=== PATIENT | male | born 1965 | race Caucasian/White ===

== ENCOUNTER 2019-06-25 16:12 | Emergency (ER) | payer OTHER, SELFPAY ==
[~2019-06-25] VITALS: Ht 190.5 cm; Wt 82.0 kg
[2019-06-25] MEDS ORDERED: AMLO10TA8 PO (16:41)
[2019-06-25] MEDS ORDERED: METO25TA35 PO (16:41)
--- NOTE | 2019-06-25 16:49 | NUR ---
PT ABLE TO PROVIDE RN WITH A URINE SAMPLE. COLLECTED AND WAITING FOR ORDERS. PERSONAL BELONGINGS COLLECT AND PLACED IN 1 PERSONAL BELONGING BAG. RN GAVE PERSONAL BELONGING BAG TO CHARGE DECK ENGINE OPERATOR RICK TO PUT INTO LOCKER. SI PRECAUTIONS IMPLEMENTED IN ROOM. AWAITING MD TO EVALUATE. SITTER REQUESTED. NO NEEDS AT THIS TIME.
--- NOTE | 2019-06-25 17:08 | NUR ---
PT LYING ON GURNEY WATCHING TV.
--- NOTE | 2019-06-25 17:24 | NUR ---
OKAY BY SOY TO ORDER PT FOOD.
--- NOTE | 2019-06-25 17:37 | NUR ---
THROUGHPUT: TELEPSYCH PAGED.
[2019-06-25 17:41] LABS: AMPHETAMINE SCREEN, URINE Negative (Negative); BARBITURATE SCREEN, URINE Negative (Negative); BENZODIAZEPINE SCREEN, URINE Negative (Negative); CANNABINOID SCREEN, URINE Positive (Negative); COCAINE SCREEN, URINE Negative (Negative); METHADONE SCREEN, URINE Negative (Negative); OPIATE SCREEN, URINE Negative (Negative)
[2019-06-25 17:52] LABS: ALBUMIN 4.4 g/dL (3.4-5.0); ANION GAP 9 mmol/L (5-15); CALCIUM 8.8 mg/dL (8.5-10.1); CHLORIDE 107 mmol/L (98-107); SALICYLATE LEVEL 2.8 mg/dL (2.8-20.0)
[2019-06-25 17:55] LABS: ALANINE AMINOTRANSFERASE 33 U/L (12-78); ALKALINE PHOSPHATASE 60 U/L (45-117); BILIRUBIN,TOTAL 0.6 mg/dL (0.2-1.0); CREATININE 0.76 mg/dL (0.7-1.3); TOTAL PROTEIN 7.7 g/dL (6.4-8.2)
--- NOTE | 2019-06-25 18:01 | NUR ---
DINNER BROUGHT TO PT.
[2019-06-25 18:08] LABS: MEAN CORPUSCULAR HEMOGLOBIN 34.5 pg (27.5-34.5); MEAN CORPUSCULAR HGB CONC 34.8 g/dL (33.2-36.2); MEAN CORPUSCULAR VOLUME 99.2 fL (81-97); PLATELET COUNT 265 x10^3/uL (130-400); RED BLOOD COUNT 4.54 x10^6/uL (4.38-5.82); RED CELL DISTRIBUTION WIDTH 12.6 % (9.4-14.8)
[2019-06-25 18:09] LABS: BASOPHILS # (AUTO) 0.02 x10^3/uL (0-0.1); BASOPHILS % (AUTO) 0 % (0-1); EOSINOPHILS # (AUTO) 0.02 x10^3/uL (0-0.4); EOSINOPHILS % (AUTO) 0 % (1-7); LYMPHOCYTES # (AUTO) 1.04 x10^3/uL (1-3.4); LYMPHOCYTES % (AUTO) 15 % (22-44); MD SCAN; MONOCYTES # (AUTO) 0.41 x10^3/uL (0.2-0.8); MONOCYTES % (AUTO) 6 % (2-9); NEUTROPHILS # (AUTO) 5.67 x10^3/uL (1.8-6.8); NEUTROPHILS % (AUTO) 79 % (42-75)
--- NOTE | 2019-06-25 18:45 | NUR ---
ROUNDS COMPLETED. RESTING SITTER AT THE BEDSIDE.
--- NOTE | 2019-06-25 18:49 | NUR ---
REPORT TO SOC.
--- NOTE | 2019-06-25 18:56 | NUR ---
REPORT TO KIRSTEN RN TO ASSUME PRIMARY CARE OF PT.
--- NOTE | 2019-06-25 19:12 | NUR ---
TELE PSYCH BEING COMPLETED.
--- NOTE | 2019-06-25 20:21 | NUR ---
REPORT TO KIRSTEN RN TO ASSUME PRIMARY CARE OF PT.
--- NOTE | 2019-06-25 20:22 | NUR ---
1:1 AT THE DOOR.
--- NOTE | 2019-06-25 20:24 | NUR ---
TP RN: PT TO BE A LEGAL HOLD. AWAITING COMPLETION OF LEGAL 2000 PRIOR TO SEEKING PLACEMENT
--- NOTE | 2019-06-25 20:45 | NUR ---
TP RN: LEGAL 2000 COMPLETED. BHU REFUSING PT D/T SELF PAY. PACKET FAXED TO [facility]
--- NOTE | 2019-06-25 21:25 | NUR ---
IN BED. RESP EVEN. NO DISTRESS. 1:1 AT DOOR.
--- NOTE | 2019-06-25 23:31 | NUR ---
IN BED. RESP EVEN. NO DISTRESS. 1:1 AT DOOR.
--- NOTE | 2019-06-26 00:43 | NUR ---
IN BED. RESP EVEN. NO DISTRESS. 1:1 AT DOOR.
--- NOTE | 2019-06-26 01:20 | NUR ---
BREAK RN: PT SLEEPING. OCCASIONAL MOVEMENT NOTED. RESPIRATIONS EVEN AND UNLABORED. ROOM REMAINS SECURE. SITTER OUTSIDE DOOR MONITORING PT.
--- NOTE | 2019-06-26 02:05 | NUR ---
IN BED. RESP EVEN. NO DISTRESS. 1:1 AT DOOR.
--- NOTE | 2019-06-26 03:46 | NUR ---
IN BED. RESP EVEN. NO DISTRESS. 1:1 AT DOOR.
--- NOTE | 2019-06-26 04:48 | NUR ---
IN BED. RESP EVEN. NO DISTRESS. 1:1 [address] DOOR. BREAKFAST TRAY ORDERED.
--- NOTE | 2019-06-26 05:56 | NUR ---
IN BED. RESP EVEN. NO DISTRESS. 1:1 [address] DOOR. NO ADVERSE BEHAVIORS DEMONSTRATED THIS SHIFT AND HAS HAD NO C/O OR VERB ANY CONCERNS.
--- NOTE | 2019-06-26 06:55 | NUR ---
RECEIVED REPORT FROM KIRSTEN. PT CALMLY SLEEPING ON GURNEY, NAD WITH EQUAL CHEST RISE/FALL, NO NEEDS AT THIS TIME, PT REMAINS IN SAFE ENVIRONMENT, SITTER IN VIEW.
--- NOTE | 2019-06-26 08:01 | NUR ---
PT LAYING ON GURNEY WITH EYES CLOSED, PT CALM, COOPERATIVE & RESPONDS APPROP TO STAFF, NAD, COMFORT MEASURES PROVIDED INCL MEAL TRAY GIVEN, PT REMAINS IN SAFE ENVIRONMENT, SITTER IN VIEW.
--- NOTE | 2019-06-26 08:10 | NUR ---
PT OK TO PLACE IN MODERATE SAFETY STRATEGIES PER DR LEWIS. SITTER REMAINS IN VIEW.
--- NOTE | 2019-06-26 09:04 | NUR ---
PT CONTINUES LAYING ON GURNEY WITH EYES CLOSED & TV ON, RESPONDS APPROP TO STAFF, NAD, COMFORT MEASURES PROVIDED- ATE 100% OF BREAKFAST, PT REMAINS IN SAFE ENVIRONMENT, SITTER IN VIEW.
--- NOTE | 2019-06-26 10:00 | NUR ---
PT LAYING ON GURNEY WITH EYES CLOSED WITH TV ON, RESPONDS APPROP TO STAFF, NAD, COMFORT MEASURES PROVIDED, PT REMAINS IN SAFE ENVIRONMENT, SITTER IN VIEW.
--- NOTE | 2019-06-26 11:01 | NUR ---
PT CONTINUES LAYING ON GURNEY WITH EYES CLOSED & TV ON, RESPONDS APPROP TO STAFF, NAD, COMFORT MEASURES PROVIDED, PT REMAINS IN SAFE ENVIRONMENT, SITTER IN VIEW.
--- NOTE | 2019-06-26 11:20 | NUR ---
PT TO HAVE MOTHER PATIENT PORTAL CONCIERGE HIS BELONGINGS FROM [place], GORDO FROM [facility] AWARE.
--- NOTE | 2019-06-26 12:00 | NUR ---
PT LAYING ON GURNEY WITH EYES CLOSED WITH TV ON, RESPONDS APPROP TO STAFF, NAD, COMFORT MEASURES PROVIDED, PT REMAINS IN SAFE ENVIRONMENT, SITTER IN VIEW.
--- NOTE | 2019-06-26 12:03 | NUR ---
MEAL TRAY GIVEN
--- NOTE | 2019-06-26 12:28 | NUR ---
BLUE DUFFEL BAG FROM [facility] TIED TO PERSONAL BELONGINGS BAG & PLACED IN LOCKER. Addendum: 06/26/19 at 1228 by VANESSA BLUE DUFFEL BAG FROM [facility] TIED TO PERSONAL BELONGINGS BAG & PLACED IN LOCKER, PT DENIED ANY VALUABLE CONTENT.
--- NOTE | 2019-06-26 13:42 | NUR ---
RECEIVED REPORT AND ASSUMED PT. CARE. PT.'S ROOM REMAINS SECURED WITH THE SITTER OUTSIDE. PT. FINISHED HIS LUNCH. VSS.
--- NOTE | 2019-06-26 15:24 | NUR ---
NO CHANGES AT THIS TIME.
--- NOTE | 2019-06-26 16:47 | NUR ---
TASK RN - PT RESTING ON YEE. MELLISA. RESP EVEN AND UNLABORED. SITTER IN PLACE, ROOM SECURED.
[2019-06-26] MEDS ORDERED: AMLODIPINE 5 MG TABLET ONE (17:13)
--- NOTE | 2019-06-26 17:27 | NUR ---
PT.'S BLOOD PRESSURE WAS DISCUSSED WITH DR. GOFF. PT. WAS MEDICATED ORDERED.
[2019-06-26] MEDS ORDERED: AMLODIPINE 5 MG TABLET PO ONE (17:30)
--- NOTE | 2019-06-26 17:36 | NUR ---
PT. WAS GIVEN A MEAL TRAY.
--- NOTE | 2019-06-26 19:04 | NUR ---
REPORT GIVEN TO YAZAN WORLEY.
--- NOTE | 2019-06-26 20:07 | NUR ---
Received report from day rn and assumed patient care while at bedside. Patient expressed desire to take a shower. Educated patient that he would need an accompanying person and would attempt to assist patient when staff member freed up. Patient agreeable to this plan. Also informed medications would be provided at around 2100 or "nine o'clock." Patient verbalized understanding. he is now resting comfortably at this time. Reports needs met at this time. Psychiatric SIGNAL TECHNICIAN at bedside, evaluated patient and ordered additional medications. patient agreeable to these meds. Awaiting placement in [facility].
[2019-06-26] MEDS: OLANZAPINE 10 MG TABLET PO SCH (20:30)
[2019-06-26] MEDS ORDERED: OLANZAPINE 10 MG TABLET ONE (20:37)
[2019-06-26] MEDS ORDERED: hydrOXyzine 50MG TABLET ONE (20:37)
[2019-06-26] MEDS: HYDROXYZINE PAMOATE 50MG CAP PO PRN (20:44)
--- NOTE | 2019-06-26 20:45 | NUR ---
RN to bedside. Informed of new medications ordered by psychiatric, INFORMATION ANALYST. Patient agreeable to scheduled medications and requested prn medications. Patient tolerated medications. Patient declines further needs at this time.
--- NOTE | 2019-06-27 07:02 | NUR ---
Receieved bedside report from MEIR Mcdaniel. All questions answered. Assuming care of pt at this time. Pt resting on gurney with eyes closed laying supine. Room remains secured for SI and HI. Sitter near doorway in direct line of sight for observation. NADN. No needs expressed at this time.
--- NOTE | 2019-06-27 07:04 | NUR ---
Called and requested hospital bed from housekeeping.
--- NOTE | 2019-06-27 09:01 | NUR ---
Breakfast tray provided to ptFranco PAK. No other needs expressed. Sitter near doorway in direct line of sight for observation.
[2019-06-27] MEDS ORDERED: OLANZAPINE 10 MG TABLET ONE (09:08)
[2019-06-27] MEDS ORDERED: hydrOXyzine 50MG TABLET ONE (09:08)
[2019-06-27] MEDS: HYDROXYZINE PAMOATE 50MG CAP PO PRN ×2 (09:18→22:37)
[2019-06-27] MEDS: OLANZAPINE 10 MG TABLET PO SCH (09:18)
--- NOTE | 2019-06-27 09:33 | NUR ---
Called for second request for hospital bed.
--- NOTE | 2019-06-27 09:44 | NUR ---
Pt home medications and cell phone located in patients blue duffle bag with patients name written on bag. Home medications and cell phone are found in a [facility] [employer] sealed bag. Recieved verbal consent from patient to open bag and to send prescriptions to pharmacy for safe keeping. Cell phone to be returned to patients blue duffle bag in ED locker for safe keeping.
--- NOTE | 2019-06-27 09:46 | NUR ---
Above sealed bag opened. Patient wallet located in bag as well. Patient wallet to be returned to ED locker to patients blue labled duffle bag for safe keeping.
--- NOTE | 2019-06-27 09:48 | NUR ---
Dental device (retainer) also located in above sealed bag to be returned to patients blue duffel bag in ED locker.
[2019-06-27] MEDS ORDERED: AMLO10TA8 PO (09:50)
[2019-06-27] MEDS ORDERED: Metoprolol PO (09:50)
[2019-06-27] MEDS ORDERED: AMLODIPINE 5 MG TABLET PO ONE (10:00)
[2019-06-27] MEDS ORDERED: METOPROLOL TARTRATE 50 MG TABLET PO ONE (10:00)
[2019-06-27] MEDS ORDERED: AMLODIPINE 5 MG TABLET ONE (10:02)
[2019-06-27] MEDS ORDERED: METOPROLOL TARTRATE 50 MG TABLET ONE (10:02)
--- NOTE | 2019-06-27 10:48 | NUR ---
Pt provided medications per EMAR. Pt appreciative. NADN. No needs expressed. Pt resumes resting on left lateral side on gurney. Awaiting hospital bed from housekeeping. Sitter near doorway in direct line of sight for observation. Lunch tray ordered.
--- NOTE | 2019-06-27 11:07 | NUR ---
Re-checked BP. Please see VS. Pt tolerated medications per EMAR without complications. Called housekeeping, third time, to request hospital bed. NADN. No other needs expressed. Sitter near doorway in direct line of sight for observation.
--- NOTE | 2019-06-27 11:41 | NUR ---
LUNCH RN: PT PLACED ON HOSPITAL BED. SITTER IN SANCHEZ FOR CONTINUOUS MONITORING
--- NOTE | 2019-06-27 11:49 | NUR ---
LUNCH RN: PHOTOGRAPHIC SPOTTER VISIT COMPLETED, HOLD IS TO BE CONTINUED.
--- NOTE | 2019-06-27 12:03 | NUR ---
LUNCH RN: LUNCH TRAY DELIVERED. PT CALM AND COOPERATIVE AT THIS TIME EATING IN BED. ALL NEEDS MET AT THIS TIME
--- NOTE | 2019-06-27 12:12 | NUR ---
Pt resting on hospital bed eating lunch tray provided. No other needs requested. VETON. Sitter near doorway in direct line of sight for observation.
--- NOTE | 2019-06-27 14:04 | NUR ---
LATE NOTE ENTRY DUE TO PT CARE. Pt gave verbal consent to allow his mother back to see him. Pt's mother came to see ptFranco Devi near doorway in direct line of sight for observation. No needs expressed at this time.
--- NOTE | 2019-06-27 14:08 | NUR ---
Pt resting on hospital bed with eyes closed. Pt has unlabored respirations with even chest rise and fall. NADN. No needs expressed.
--- NOTE | 2019-06-27 15:47 | NUR ---
Pt sitting on hospital bed. NADN. No needs expressed. Sitter near doorway in direct line of sight for observation.
--- NOTE | 2019-06-27 15:47 | NUR ---
Dinner tray ordered for pt.
--- NOTE | 2019-06-27 16:48 | NUR ---
LATE NOTE ENTRY DUE TO PT CARE. Pt provided dinner tray. Pt appreciative. Pt sitting on hospital bed watching TV. Sitter near doorway in direct line of sight for observation. NADN. No other needs expressed.
--- NOTE | 2019-06-27 18:14 | NUR ---
LATE NOTE ENTRY DUE TO PT CARE. Pt resting on hospital bed with eyes closed. Pt has unlabored respirations with even chest rise and fall. NADN. No needs expressed.
--- NOTE | 2019-06-27 18:15 | NUR ---
Sitter near doorway in direct line of sight for observation.
--- NOTE | 2019-06-27 19:22 | NUR ---
pt resting calmly, stated ' i no longer have thoughts of hurting or suicide, also stated the voices "are alot less now", room secured, sitter at doorway for continous monitoring
--- NOTE | 2019-06-27 19:38 | NUR ---
Provided report to MEIR Nunez. All questions answered. MEIR Nunez to assume care of pt at this time.
--- NOTE | 2019-06-27 20:06 | NUR ---
pt resting in bed, repositions self frequently, denies needs, respirations even and unlabored, sitter at doorway for continous monitoring
--- NOTE | 2019-06-27 21:20 | NUR ---
pt resting in bed, nad, denies needs at this time, safety measures maintained, sitter at doorway for continous monitoring
--- NOTE | 2019-06-27 22:00 | NUR ---
PT RESTING IN BED, PROVIDED PT WITH PILLOW AND XTRA WARM BLANKETS, DENIES FURTHER NEEDS, SITTER AT DOORWAY FOR CONTINOUS MONITORING
--- NOTE | 2019-06-27 22:37 | NUR ---
pt up to rr with sitter at his side, medicated for anxiety per his request, see mar. pt now resting in bed, denies further needs, sitter at doorway for continous monitoring
--- NOTE | 2019-06-27 23:25 | NUR ---
DISCUSSED WITH ERP PT'S HOME MEDICATIONS, ERP TO VIEW PT'S CHART
--- NOTE | 2019-06-27 23:28 | NUR ---
PT RESTING IN BED, NAD, EQUAL CHEST RISE/FALL OBSERVED, SITTER AT DOORWAY FOR CONTINOUS MONITORING
--- NOTE | 2019-06-28 00:26 | NUR ---
BREAK RN: PT PROVIDED WITH MEAL REQUESTED. PT VERY GRATEFUL AND COOPERATIVE AT THIS TIME. SITTER REMAINS OUTSIDE DOOR. ROOM REMAINS SECURE. WILL CONTINUE TO MONITOR.
--- NOTE | 2019-06-28 00:56 | NUR ---
PT SITTING UP IN BED, DENIES NEEDS AT THIS TIME, SITTER AT DOORWAY FOR CONTINOUS MONITORING
--- NOTE | 2019-06-28 02:10 | NUR ---
pt resting in bed with eyes closed, equal chest rise/fall observed, sitter at doorway for continous monitoring
--- NOTE | 2019-06-28 03:05 | NUR ---
pt resting calmly with eyes closed, equal chest rise/fall observed, room remains secured, sitter at doorway for continous monitoring
--- NOTE | 2019-06-28 04:13 | NUR ---
pt resting in bed with eyes closed, equal chest rise/fall observed, sitter at doorway for continous monitoring
--- NOTE | 2019-06-28 04:58 | NUR ---
pt resting on gurney, equal chest rise/fall observed, sitter at doorway for continous monitoring
--- NOTE | 2019-06-28 06:10 | NUR ---
PT RESTING IN BED WITH EYES CLOSED, REPOSITED SELF, EQUAL CHEST RISE/FALL OBSERVED, SITTER AT DOORWAY FOR CONTINOUS MONITORING
--- NOTE | 2019-06-28 06:45 | NUR ---
report given to rich lopez
--- NOTE | 2019-06-28 06:45 | NUR ---
REPORT RECEIVED FROM MEIR VICTOR. PLAN OF CARE DISCUSSED.
--- NOTE | 2019-06-28 06:45 | NUR ---
Ray ramirez in ED - 06/28/19 at 0645 by JESSICA report given to rich lopez
--- NOTE | 2019-06-28 06:53 | NUR ---
report given to rich dimas
--- NOTE | 2019-06-28 07:15 | NUR ---
ASSUMED CARE OF PT. PT IS ASLEEP IN NO DISTRESS, RESPIRATIONS EVEN UNLABORED, SITTER AT BEDSIDE.
[2019-06-28] MEDS ORDERED: OLANZAPINE 10 MG TABLET ONE (08:19)
[2019-06-28] MEDS ORDERED: hydrOXyzine 50MG TABLET ONE ×2 (08:22→08:31)
[2019-06-28] MEDS: OLANZAPINE 10 MG TABLET PO SCH (08:27)
--- NOTE | 2019-06-28 08:52 | NUR ---
BREAKFAST WAS SERVED AND PT ATE 100%. HE AMBULATED TO THE BATHROOM WITH A STEADY GAIT.
[2019-06-28 09:20] VITALS: BP 151/90
[2019-06-28] MEDS: HYDROXYZINE PAMOATE 50MG CAP PO PRN (09:25)
--- NOTE | 2019-06-28 09:25 | NUR ---
Medicated with Vistaril 50 mg po for anxiety rated 9/10. Pt rates depression 10/10. When asked about SI pt hesitated and avoided eye contact. Eventually he denied Si but he does report the wish to be , to go to sleep and never wake up. He reports hearing voices and noises. The voices say "fuck you" but are not command in nature. He has a flat affect, makes minimal eye contact and has slightly delayed responses.
--- NOTE | 2019-06-28 09:48 | NUR ---
MERRY RN: I spoke w/ Brett RN at [facility], this pt is not anticipated to receive a bed at [facility] this week.
--- NOTE | 2019-06-28 10:32 | NUR ---
PT IS RESTING, EASILY AROUSED. NO DISTRESS NOTED.
--- NOTE | 2019-06-28 11:29 | NUR ---
Pt appears to be asleep in no distress.
--- NOTE | 2019-06-28 12:20 | NUR ---
Pt ate 100% of lunch. William Friend carmelina JULIEN is assessing pt.
--- NOTE | 2019-06-28 12:42 | NUR ---
Pt reported to William Friend carmelina JULIEN that he wants to go to [facility] for treatment and that his mother is willing to pay for it. This hand sign writer confirmed with [facility] that they would consider pt for admission if his mother agrees to pay. Pt gave this hand sign writer verbal consent to call his mother to talk to her about this.
--- NOTE | 2019-06-28 12:49 | NUR ---
MERRY RN: packet faxed to [facility]
--- NOTE | 2019-06-28 12:50 | NUR ---
Pt's mother was contacted regarding payment for [facility]. She says she will visit this afternoon and discuss options then.
--- NOTE | 2019-06-28 13:26 | NUR ---
Report given to Melisa at [facility]. Pt will be accepted to [facility] pending financial arrangements.
--- NOTE | 2019-06-28 13:39 | NUR ---
Pt appears to be asleep in no distress.
--- NOTE | 2019-06-28 14:25 | NUR ---
This commercial loan underwriter has had multiple conversations with Melisa WORLEY at [facility] and with Irina from [facility]. At this time we are waiting for pt's mother to come for a visit so that [facility] and possible [facility] staff can explain the financial situation regarding Mom paying for his admit at [facility].
--- NOTE | 2019-06-28 14:29 | NUR ---
Pt appears to be asleep in no distress.
--- NOTE | 2019-06-28 15:01 | NUR ---
Pt's mother and brother are here for visitation. Irina from [employer] has been contacted to talk to the family.
--- NOTE | 2019-06-28 15:10 | NUR ---
Irina from [facility] is here to speak with pt's mother.
--- NOTE | 2019-06-28 16:07 | NUR ---
Irina spent a lot of time with pt and his family,reviewing all options available. Now pt and family are discussing it. They haven't yet made a decision about paying for [facility].
--- NOTE | 2019-06-28 16:24 | NUR ---
Pt's mother reports that she definitely wants him to receive treatment at [facility] and she is willing to pay for it. Melisa WORLEY at [facility] is informed of this.
--- NOTE | 2019-06-28 17:14 | NUR ---
PER PT'S REQUEST, HIS BELONGINGS HAVE BEEN GIVEN TO HIS FAMILY TO TAKE HOME WITH THE EXCEPTION OF THE CLOTHES HE IS GOING TO WEAR FOR TRANSPORT.
--- NOTE | 2019-06-28 17:25 | NUR ---
Notified William Santiago psych SUPERVISOR FINISHING ROOM that pt will be transfered to [facility].
--- NOTE | 2019-06-28 18:13 | NUR ---
Call placed to William Friend WILY and VM left to see if he would be willing to take pt off legal hold so his family could transport him to [place]. Pt's mother is paying for his treatment at [facility] and the ambulance bill would be another $[phone]. Family previously expressed interest in transporting pt to avoid the ambulance bill. Melisa at [facility] is aware of this and [facility] is willing to accpet pt on a voluntary basis. Waiting to hear back from William at this time.
--- NOTE | 2019-06-28 18:25 | NUR ---
Confirmed with ED night supervisor that pt will be transported to [facility] via [facility]. Arrangements for transport being made by [employer]. Pt ate 100 % of dinner.
--- NOTE | 2019-06-28 18:41 | NUR ---
MERRY RN: info faxed to [facility] for transport
--- NOTE | 2019-06-28 18:58 | NUR ---
REPORT FROM MEIR MCDANIEL
== END 2019-06-28 19:45 ==
LOC: ED 18:28
DX: R45.851 Suicidal ideations (principal); F23 Brief psychotic disorder; I10 Essential (primary) hypertension
CPT/HCPCS: 36415; 80053; 80307; 85025; 99285